=== PATIENT | female | born 1990 | race Two or more races ===

== ENCOUNTER 2021-02-10 16:35 | Observation (INO) | payer MEDICAID ==
[~2021-02-10] VITALS: Ht 157.5 cm; Wt 83.9 kg
[2021-02-10 18:51] LABS: Urine Bacteria FEW /hpf (None Seen); Urine Blood Negative /uL (Negative); Urine Mucus FEW (None Seen); Urine Specific Gravity 1.023 (1.001-1.035); Urine WBC 5 /hpf (0 - 5); Urine WBC Clumps PRESENT /hpf (None Seen)
[2021-02-10] MEDS ORDERED: PREN-96 PO (19:38)
[2021-02-10] MEDS ORDERED: NITR-87 PO (19:38)
== END 2021-02-10 19:49 | disposition home or self-care (01) ==
LOC: LDRP 16:35
PROVIDERS: ADMIT Obstetrics & Gynecology; ATTEND Obstetrics & Gynecology
DX: O26.893 Other specified pregnancy related conditions, third trimester (principal); R10.2 Pelvic and perineal pain; R35.0 Frequency of micturition; Z33.2 Encounter for elective termination of pregnancy
CPT/HCPCS: 59025; 76805; 81001; 81002; 94760; G0378